=== PATIENT | male | born 1985 | race Two or more races ===

== ENCOUNTER 2018-02-03 03:36 | Emergency (ER) | payer MEDICAID ==
[~2018-02-03] VITALS: Ht 182.9 cm; Wt 113.0 kg
[2018-02-03] MEDS ORDERED: IBUPROFEN 600MG TABLET PO ONE (04:15)
[2018-02-03] MEDS ORDERED: HYDROCODONE/ACETAMINOPHEN 5/325MG TABLET PO ONE (05:45)
[2018-02-03 06:00] VITALS: BP 127/68
== END 2018-02-03 06:05 | disposition home or self-care (01) ==
LOC: ER 03:36
DX: S62.396A Other fracture of fifth metacarpal bone, right hand, initial encounter for closed fracture (principal); S62.398A Other fracture of other metacarpal bone, initial encounter for closed fracture; W22.8XXA Striking against or struck by other objects, initial encounter; Y93.89 Activity, other specified; Y92.89 Other specified places as the place of occurrence of the external cause; R03.0 Elevated blood-pressure reading, without diagnosis of hypertension; F17.210 Nicotine dependence, cigarettes, uncomplicated; F12.90 Cannabis use, unspecified, uncomplicated; B19.20 Unspecified viral hepatitis C without hepatic coma
CPT/HCPCS: 29125; 73110; 73130; 99284